=== PATIENT | female | born 1990 | race Caucasian/White ===

== ENCOUNTER → 2017-12-08 | Outpatient (CLI) | payer OTHER ==
[~2017-12-08] MED LIST: DOXYCYCLINE 10100 MG PO; KEFLEX500 MG PO; LINZESS290 MCG PO; NORCO 5-325 TA1 EACH PO; SENNA8.6 MG PO; ZOFRAN ODT4 MG PO
== END ==
LOC: RAD 09:13 → ULTRA 09:13
DX: N64.4 Mastodynia (principal)